=== PATIENT | male | born 1960 | race Caucasian/White ===

== ENCOUNTER 2022-01-10 12:47 | Inpatient (IN) | payer OTHER ==
[~2022-01-10] VITALS: Ht 177.8 cm; Wt 101.2 kg
[2022-01-10 13:20] LABS: BASOPHILS % (AUTO) 0.8 % (0.0-2.0); EOSINOPHILS % (AUTO) 3.3 % (1.0-6.0); HEMATOCRIT 22.3 % (41-53); HEMOGLOBIN 7.3 g/dL (13.5-17.5); LYMPHOCYTES # (AUTO) 1.6 K/uL (1.0-4.8); MEAN CORPUSCULAR HEMOGLOBIN 31.6 pg (26.0-34.0); MEAN CORPUSCULAR HGB CONC 32.7 G/dL (31.0-37.0); MEAN CORPUSCULAR VOLUME 97 fL (80-100); MONOCYTES # (AUTO) 0.3 K/uL (0.1-1.0); MONOCYTES % (AUTO) 3.8 % (2.0-9.0); NEUTROPHILS # (AUTO) 6.1 K/uL (1.8-7.7); NEUTROPHILS % (AUTO) 73.1 % (40.0-70.0); PLATELET COUNT (AUTO) 243 K/uL (150-450); RED BLOOD CELL COUNT(AUTO) 2.31 MIL/uL (4.50-5.90); RED CELL DISTRIBUTION WIDTH 18.8 % (11.5-14.5)
[2022-01-10 13:31] LABS: ABG BASE EXCESS -2.2 mmol/L (-2.0-3.0); ABG CARBOXYHEMOGLOBIN 1.1 % (0.0-1.5); ABG HCO3 22.6 mmol/L (22.0-26.0); ABG METHEMOGLOBIN 0.2 % (0.0-1.5); ABG OXYGEN CONTENT 11.3 mL/dL (15.0-23.0); ABG OXYGEN SATURATION 99.6 % (95.0-98.0); ABG OXYHEMOGLOBIN 98.3 % (94.0-100.0); ABG PCO2 60 mmHg (35-45); ABG PH 7.245 (7.35-7.450); PO2, ARTERIAL BG 248.8 mmHg (79.0-87.0); SOURCE, BLOOD GAS ARTERIAL; TEMPERATURE, FAHRENHEIT, BG 101.9 FAHREN (96.0-98.6)
[2022-01-10 13:32] LABS: ABG A-A DIFF O2 399.6 mmHg (10-20.0); ABG TOTAL HEMOGLOBIN 7.7 G/dL (12.0-18.0); O2 DEVICE,BLOOD GAS NRB (ROOM AIR); SITE, BLOOD GAS RT RADIAL
[2022-01-10 13:33] LABS: CALCIUM, TOTAL 8.8 mg/dL (8.8-10.5); CREATININE 9.08 mg/dL (0.60-1.30); POTASSIUM 5.8 mmol/L (3.5-5.1)
[2022-01-10 13:42] LABS: INR 1.1 (0.9-1.1); PROTHROMBIN TIME 11.3 SEC (9.4-11.6)
[2022-01-10 13:45] LABS: ALBUMIN 3.7 g/dL (3.4-5.0); BILIRUBIN,TOTAL 0.5 mg/dL (0.1-1.0); TOTAL PROTEIN, SERUM 8.9 g/dL (6.4-8.2)
[2022-01-10] MEDS ORDERED: NITROGLYCERIN 2% (1 GM=INCH) PACKET TP ONE (13:45)
[2022-01-10] MEDS ORDERED: ASPIRIN 81 MG CHEWABLE TABLET PO ONE (13:45)
[2022-01-10 13:59] LABS: COVID AG,FIA SOURCE NASAL SWAB
[2022-01-10 20:00] VITALS: BP 136/50
[2022-01-10 21:00] VITALS: BP_SYST 137; BP_SYST 141; BP_DIAS 75; BP_DIAS 76
[2022-01-10] MEDS ORDERED: HEPARIN SODIUM,PORCINE 1,000 UNITS/ML 10 ML VIAL IVP PRN ×2 (21:00)
[2022-01-10 21:29] VITALS: BP 123/86
[2022-01-10 22:01] VITALS: BP 133/63
[2022-01-10 22:31] VITALS: BP 140/58
[2022-01-10] MEDS ORDERED: MAGNESIUM HYDROXIDE SUSPENSION 30 ML UDCUP PO PRN (23:30)
[2022-01-10] MEDS ORDERED: ALBUTEROL SULFATE 2.5 MG/0.5 ML NEB SOLUTION NEB PRN (23:30)
[2022-01-10] MEDS ORDERED: BISACODYL 10 MG RECTAL RECTAL SUPPOSITORY PR PRN (23:30)
[2022-01-10] MEDS ORDERED: MORPHINE SULFATE 2 MG/ML SYRINGE IVP PRN (23:30)
[2022-01-10] MEDS ORDERED: ZOLPIDEM TARTRATE 5 MG TABLET PO PRN (23:30)
[2022-01-10] MEDS ORDERED: ONDANSETRON HCL 4 MG/2 ML VIAL IVP PRN (23:30)
[2022-01-10] MEDS ORDERED: IPRATROPIUM BROMIDE 0.5 MG/2.5 ML NEB SOLUTION NEB PRN (23:30)
[2022-01-11] VITALS (10 sets, daily range): BP systolic 143–189; BP diastolic 58–97
[2022-01-11] MEDS: HEPARIN SODIUM,PORCINE 5,000 UNITS/ML VIAL SQ SCH ×4 (00:38→23:40)
[2022-01-11] MEDS ORDERED: DEXTROSE 50%-WATER 25 GM/50 ML SYRINGE IVP PRN (04:45)
[2022-01-11] MEDS: CHOLECALCIFEROL (VIT D3) 1,000 UNITS [25 MCG] TABLET PO SCH (11:36)
[2022-01-11] MEDS: CINACALCET HCL 30 MG TABLET PO SCH (11:36)
[2022-01-11] MEDS: PANTOPRAZOLE SODIUM 40 MG/VIAL IVP SCH (11:36)
[2022-01-11] MEDS: ASPIRIN 81 MG DR TABLET PO SCH (11:36)
[2022-01-11] MEDS: HydrALAZINE HCL 20 MG/ML VIAL IVP PRN ×3 (11:37→21:21)
[2022-01-11] MEDS ORDERED: IPRATROPIUM BROMIDE 0.5 MG/2.5 ML NEB SOLUTION NEB PRN (12:00)
[2022-01-11] MEDS ORDERED: ALBUTEROL SULFATE 2.5 MG/0.5 ML NEB SOLUTION NEB PRN (12:00)
[2022-01-11] MEDS ORDERED: HEPARIN SODIUM,PORCINE 1,000 UNITS/ML VIAL IVP PRN ×2 (14:15)
[2022-01-11] MEDS: CALCIUM CARBONATE 500 MG TABLET PO SCH ×2 (15:58→21:00)
[2022-01-11] MEDS: HydrALAZINE HCL 50 MG TABLET PO SCH ×2 (15:58→21:00)
[2022-01-11] MEDS: FERROUS SULFATE 325 MG EC TABLET PO SCH (17:19)
[2022-01-11] MEDS ORDERED: HEPARIN SODIUM,PORCINE 1,000 UNITS/ML VIAL IVP ONE ×2 (18:17→18:18)
[2022-01-11] MEDS: NIFEdipine 90 MG ER TABLET PO SCH (21:00)
[2022-01-11] MEDS: LOSARTAN POTASSIUM 50 MG TABLET PO SCH (21:00)
[2022-01-11] MEDS ORDERED: METOPROLOL TARTRATE 50 MG TABLET PO SCH (21:00)
[2022-01-12] MEDS ORDERED: METOPROLOL TARTRATE 5 MG/5 ML VIAL IVP ONE
[2022-01-12 01:13] VITALS: BP 170/83
[2022-01-12] MEDS: HydrALAZINE HCL 20 MG/ML VIAL IVP PRN (03:57)
[2022-01-12] MEDS: NIFEdipine 90 MG ER TABLET PO SCH ×2 (04:11→20:42)
[2022-01-12 04:32] VITALS: BP 200/89
[2022-01-12] MEDS ORDERED: HydrALAZINE HCL 20 MG/ML VIAL IVP SCH (05:00)
[2022-01-12 05:44] VITALS: BP 174/79
[2022-01-12 06:51] LABS: GLUCOMETER DEV NAME(LOC) 5N.3; GLUCOSE,POINT OF CARE 70 MG/DL (70-110)
[2022-01-12 08:29] VITALS: BP 128/56
[2022-01-12] MEDS: HYDROCODONE/ACETAMINOPHEN 5-325 MG TABLET PO PRN ×2 (08:33→17:42)
[2022-01-12] MEDS: FERROUS SULFATE 325 MG EC TABLET PO SCH ×2 (08:33→17:41)
[2022-01-12] MEDS: CINACALCET HCL 30 MG TABLET PO SCH (08:33)
[2022-01-12] MEDS: PANTOPRAZOLE SODIUM 40 MG/VIAL IVP SCH (08:34)
[2022-01-12] MEDS: HEPARIN SODIUM,PORCINE 5,000 UNITS/ML VIAL SQ SCH ×2 (08:34→17:41)
[2022-01-12] MEDS: CHOLECALCIFEROL (VIT D3) 1,000 UNITS [25 MCG] TABLET PO SCH (08:35)
[2022-01-12] MEDS: ASPIRIN 81 MG DR TABLET PO SCH (08:35)
[2022-01-12] MEDS: CALCIUM CARBONATE 500 MG TABLET PO SCH ×3 (08:35→20:42)
[2022-01-12] MEDS: LOSARTAN POTASSIUM 50 MG TABLET PO SCH ×2 (08:38→20:42)
[2022-01-12] MEDS ORDERED: METOPROLOL TARTRATE 5 MG/5 ML VIAL IVP SCH (09:00)
[2022-01-12 11:59] VITALS: BP 136/57
[2022-01-12] MEDS: HydrALAZINE HCL 50 MG TABLET PO SCH (16:00)
[2022-01-12] MEDS: MethylPREDNISolone SOD SUCC 40 MG/ML VIAL IVP SCH (17:41)
[2022-01-12 19:27] VITALS: BP 137/77
[2022-01-12] MEDS: METOPROLOL TARTRATE 50 MG TABLET PO SCH (20:43)
[2022-01-13] VITALS (13 sets, daily range): BP systolic 120–178; BP diastolic 43–95
[2022-01-13] MEDS: MethylPREDNISolone SOD SUCC 40 MG/ML VIAL IVP SCH ×5 (00:05→23:46)
[2022-01-13] MEDS: HEPARIN SODIUM,PORCINE 5,000 UNITS/ML VIAL SQ SCH ×4 (00:05→23:46)
[2022-01-13] MEDS: HydrALAZINE HCL 50 MG TABLET PO SCH ×4 (00:05→23:46)
[2022-01-13] MEDS: HydrALAZINE HCL 20 MG/ML VIAL IVP PRN (03:06)
[2022-01-13] MEDS: HYDROCODONE/ACETAMINOPHEN 5-325 MG TABLET PO PRN ×3 (05:48→20:41)
[2022-01-13] MEDS: METOPROLOL TARTRATE 50 MG TABLET PO SCH ×2 (06:22→21:00)
[2022-01-13 06:58] LABS: CALCIUM, TOTAL 8.2 mg/dL (8.8-10.5); CREATININE 9.43 mg/dL (0.60-1.30); POTASSIUM 5.9 mmol/L (3.5-5.1)
[2022-01-13] MEDS: CALCIUM CARBONATE 500 MG TABLET PO SCH ×3 (08:34→20:41)
[2022-01-13] MEDS: CHOLECALCIFEROL (VIT D3) 1,000 UNITS [25 MCG] TABLET PO SCH (08:34)
[2022-01-13] MEDS: LOSARTAN POTASSIUM 50 MG TABLET PO SCH ×2 (08:34→20:41)
[2022-01-13] MEDS: ASPIRIN 81 MG DR TABLET PO SCH (08:34)
[2022-01-13] MEDS: FERROUS SULFATE 325 MG EC TABLET PO SCH ×2 (08:35→18:00)
[2022-01-13] MEDS: CINACALCET HCL 30 MG TABLET PO SCH (08:35)
[2022-01-13] MEDS: PANTOPRAZOLE SODIUM 40 MG/VIAL IVP SCH (08:38)
[2022-01-13] MEDS: NIFEdipine 90 MG ER TABLET PO SCH ×2 (09:00→21:00)
[2022-01-13] MEDS ORDERED: SODIUM CHLORIDE 0.9% 1,000 ML ONE (09:07)
[2022-01-13] MEDS ORDERED: HEPARIN SODIUM,PORCINE 1,000 UNITS/ML VIAL IVP ONE (12:00)
[2022-01-14 00:16] LABS: GLUCOMETER DEV NAME(LOC) 5N.3; GLUCOSE,POINT OF CARE 208 MG/DL (70-110)
[2022-01-14 04:11] VITALS: BP 145/71
[2022-01-14] MEDS: MethylPREDNISolone SOD SUCC 40 MG/ML VIAL IVP SCH ×4 (06:00→23:49)
[2022-01-14] MEDS: HEPARIN SODIUM,PORCINE 5,000 UNITS/ML VIAL SQ SCH ×3 (08:00→23:48)
[2022-01-14] MEDS: HydrALAZINE HCL 50 MG TABLET PO SCH ×3 (08:00→23:49)
[2022-01-14] MEDS: CINACALCET HCL 30 MG TABLET PO SCH (08:00)
[2022-01-14] MEDS: FERROUS SULFATE 325 MG EC TABLET PO SCH ×2 (08:00→16:51)
[2022-01-14] MEDS: NIFEdipine 90 MG ER TABLET PO SCH ×2 (09:00→21:00)
[2022-01-14] MEDS: ASPIRIN 81 MG DR TABLET PO SCH (09:00)
[2022-01-14] MEDS: PANTOPRAZOLE SODIUM 40 MG/VIAL IVP SCH (09:00)
[2022-01-14] MEDS: CHOLECALCIFEROL (VIT D3) 1,000 UNITS [25 MCG] TABLET PO SCH (09:00)
[2022-01-14] MEDS: LOSARTAN POTASSIUM 50 MG TABLET PO SCH ×2 (09:00→20:59)
[2022-01-14] MEDS: METOPROLOL TARTRATE 50 MG TABLET PO SCH ×2 (09:00→20:58)
[2022-01-14] MEDS: CALCIUM CARBONATE 500 MG TABLET PO SCH ×3 (09:00→20:59)
[2022-01-14] MEDS ORDERED: SEVE800T7 PO (11:41)
[2022-01-14] MEDS ORDERED: ACET-784 PO (11:41)
[2022-01-14] MEDS ORDERED: METO50 PO (11:41)
[2022-01-14] MEDS ORDERED: SIME80TA12 PO (11:41)
[2022-01-14] MEDS ORDERED: LACT10SO62 PO (11:41)
[2022-01-14] MEDS ORDERED: NIFE90TA63 PO (11:41)
[2022-01-14] MEDS ORDERED: FAMO20 PO (11:41)
[2022-01-14] MEDS ORDERED: ASPI-1450 PO (11:41)
[2022-01-14] MEDS ORDERED: OXYM15SP57 NASAL (11:41)
[2022-01-14] MEDS ORDERED: SENN8.8S18 PO (11:41)
[2022-01-14] MEDS ORDERED: HYDR50TA36 PO (11:41)
[2022-01-14] MEDS ORDERED: IPRA3AMP24 IH (11:41)
[2022-01-14] MEDS ORDERED: DOCU250C99 PO (11:41)
[2022-01-14] MEDS ORDERED: CALC-613 PO (11:41)
[2022-01-14] MEDS ORDERED: B CO1CAP6 PO (11:41)
[2022-01-14] MEDS ORDERED: FERR-82 PO (11:41)
[2022-01-14] MEDS ORDERED: BISA-72 PO (11:41)
[2022-01-14] MEDS ORDERED: LACT10SO32 PO (11:41)
[2022-01-14] MEDS ORDERED: CHOL25TA4 PO (11:41)
[2022-01-14 13:14] VITALS: BP 188/90
[2022-01-14 15:44] VITALS: BP 173/80
[2022-01-14 18:31] LABS: GLUCOMETER DEV NAME(LOC) 5S.1B; GLUCOSE,POINT OF CARE 122 MG/DL (70-110)
[2022-01-14 20:32] VITALS: BP 130/48
[2022-01-15] VITALS (15 sets, daily range): BP systolic 113–177; BP diastolic 49–70
[2022-01-15] MEDS: HydrALAZINE HCL 20 MG/ML VIAL IVP PRN (04:19)
[2022-01-15] MEDS: ACETAMINOPHEN 325 MG TABLET PO PRN ×2 (04:51→18:23)
[2022-01-15] MEDS: MethylPREDNISolone SOD SUCC 40 MG/ML VIAL IVP SCH ×3 (05:59→18:23)
[2022-01-15 07:11] LABS: GLUCOMETER DEV NAME(LOC) 5N.3; GLUCOSE,POINT OF CARE 151 MG/DL (70-110)
[2022-01-15] MEDS: HEPARIN SODIUM,PORCINE 5,000 UNITS/ML VIAL SQ SCH ×2 (08:00→16:00)
[2022-01-15 08:21] LABS: BASOPHILS % (AUTO) 0.2 % (0.0-2.0); EOSINOPHILS % (AUTO) 0.2 % (1.0-6.0); LYMPHOCYTES # (AUTO) 0.4 K/uL (1.0-4.8); MEAN CORPUSCULAR HEMOGLOBIN 31.5 pg (26.0-34.0); MEAN CORPUSCULAR VOLUME 96 fL (80-100); MONOCYTES # (AUTO) 0.1 K/uL (0.1-1.0); MONOCYTES % (AUTO) 1.1 % (2.0-9.0); NEUTROPHILS # (AUTO) 4.7 K/uL (1.8-7.7); PLATELET COUNT (AUTO) 167 K/uL (150-450); RED BLOOD CELL COUNT(AUTO) 2.15 MIL/uL (4.50-5.90); RED CELL DISTRIBUTION WIDTH 18.3 % (11.5-14.5)
[2022-01-15] MEDS: CHOLECALCIFEROL (VIT D3) 1,000 UNITS [25 MCG] TABLET PO SCH (08:29)
[2022-01-15] MEDS: CINACALCET HCL 30 MG TABLET PO SCH (08:29)
[2022-01-15] MEDS: PANTOPRAZOLE SODIUM 40 MG/VIAL IVP SCH (08:29)
[2022-01-15] MEDS: FERROUS SULFATE 325 MG EC TABLET PO SCH ×2 (08:29→18:23)
[2022-01-15] MEDS: NIFEdipine 90 MG ER TABLET PO SCH ×2 (08:30→20:57)
[2022-01-15] MEDS: HydrALAZINE HCL 50 MG TABLET PO SCH ×2 (08:30→16:00)
[2022-01-15] MEDS: METOPROLOL TARTRATE 50 MG TABLET PO SCH ×2 (08:31→20:58)
[2022-01-15] MEDS: ASPIRIN 81 MG DR TABLET PO SCH (08:31)
[2022-01-15] MEDS: CALCIUM CARBONATE 500 MG TABLET PO SCH ×3 (08:31→20:58)
[2022-01-15] MEDS: LOSARTAN POTASSIUM 50 MG TABLET PO SCH ×2 (08:32→20:57)
[2022-01-15 08:41] LABS: HEMATOCRIT 20.5 % (41-53); HEMOGLOBIN 6.8 g/dL (13.5-17.5); NEUTROPHILS % (AUTO) 91.5 % (40.0-70.0)
[2022-01-15 08:57] LABS: ALBUMIN 3.2 g/dL (3.4-5.0); BILIRUBIN,TOTAL 0.5 mg/dL (0.1-1.0); CALCIUM, TOTAL 8.1 mg/dL (8.8-10.5); CREATININE 8.93 mg/dL (0.60-1.30); POTASSIUM 5.9 mmol/L (3.5-5.1); TOTAL PROTEIN, SERUM 7.2 g/dL (6.4-8.2)
[2022-01-15 11:06] LABS: BASOPHILS % (AUTO) 0.1 % (0.0-2.0); EOSINOPHILS % (AUTO) 0 % (1.0-6.0); HEMATOCRIT 21.9 % (41-53); LYMPHOCYTES # (AUTO) 0.4 K/uL (1.0-4.8); LYMPHOCYTES % (AUTO) 6.6 % (22.0-44.0); MEAN CORPUSCULAR HEMOGLOBIN 30.9 pg (26.0-34.0); MEAN CORPUSCULAR VOLUME 96 fL (80-100); MONOCYTES % (AUTO) 0.7 % (2.0-9.0); NEUTROPHILS # (AUTO) 4.9 K/uL (1.8-7.7); PLATELET COUNT (AUTO) 183 K/uL (150-450); RED BLOOD CELL COUNT(AUTO) 2.27 MIL/uL (4.50-5.90); RED CELL DISTRIBUTION WIDTH 17.8 % (11.5-14.5)
[2022-01-15 11:07] LABS: NEUTROPHILS % (AUTO) 92.6 % (40.0-70.0)
[2022-01-15 11:17] LABS: CREATININE 9.2 mg/dL (0.60-1.30); POTASSIUM 5.9 mmol/L (3.5-5.1)
[2022-01-15] MEDS: INSULIN LISPRO 100 UNITS/ML SQ PRN ×3 (11:58→20:45)
[2022-01-15] MEDS: HYDROCODONE/ACETAMINOPHEN 5-325 MG TABLET PO PRN (12:24)
[2022-01-15] MEDS ORDERED: SODIUM CHLORIDE 0.9% 1,000 ML ONE ×2 (13:09)
[2022-01-15] MEDS ORDERED: SENN-277 PO (13:22)
[2022-01-15 22:02] LABS: GLUCOMETER DEV NAME(LOC) 5S.1B; GLUCOSE,POINT OF CARE 190 MG/DL (70-110)
[2022-01-16] MEDS: MethylPREDNISolone SOD SUCC 40 MG/ML VIAL IVP SCH ×5 (00:12→23:59)
[2022-01-16] MEDS: HydrALAZINE HCL 50 MG TABLET PO SCH ×5 (00:13→23:59)
[2022-01-16 00:27] VITALS: BP 123/56
[2022-01-16] MEDS: INSULIN LISPRO 100 UNITS/ML SQ PRN ×4 (06:03→21:26)
[2022-01-16 07:45] LABS: EOSINOPHILS % (AUTO) 0 % (1.0-6.0); HEMATOCRIT 23.4 % (41-53); HEMOGLOBIN 7.6 g/dL (13.5-17.5); LYMPHOCYTES # (AUTO) 0.5 K/uL (1.0-4.8); LYMPHOCYTES % (AUTO) 5.7 % (22.0-44.0); MEAN CORPUSCULAR HEMOGLOBIN 31.6 pg (26.0-34.0); MEAN CORPUSCULAR HGB CONC 32.6 G/dL (31.0-37.0); MEAN CORPUSCULAR VOLUME 97 fL (80-100); MONOCYTES # (AUTO) 0.2 K/uL (0.1-1.0); MONOCYTES % (AUTO) 2.6 % (2.0-9.0); NEUTROPHILS # (AUTO) 7.6 K/uL (1.8-7.7); PLATELET COUNT (AUTO) 191 K/uL (150-450); RED BLOOD CELL COUNT(AUTO) 2.41 MIL/uL (4.50-5.90)
[2022-01-16 07:52] LABS: NEUTROPHILS % (AUTO) 91.7 % (40.0-70.0)
[2022-01-16 07:58] LABS: ALBUMIN 3.2 g/dL (3.4-5.0); BILIRUBIN,TOTAL 0.4 mg/dL (0.1-1.0); CREATININE 5.92 mg/dL (0.60-1.30); POTASSIUM 4.4 mmol/L (3.5-5.1); TOTAL PROTEIN, SERUM 7.3 g/dL (6.4-8.2)
[2022-01-16 08:33] VITALS: BP 162/65
[2022-01-16] MEDS: FERROUS SULFATE 325 MG EC TABLET PO SCH ×2 (09:12→17:48)
[2022-01-16] MEDS: CINACALCET HCL 30 MG TABLET PO SCH (09:12)
[2022-01-16] MEDS: NIFEdipine 90 MG ER TABLET PO SCH ×2 (09:12→21:23)
[2022-01-16] MEDS: LOSARTAN POTASSIUM 50 MG TABLET PO SCH ×2 (09:13→21:23)
[2022-01-16] MEDS: HYDROCODONE/ACETAMINOPHEN 5-325 MG TABLET PO PRN (09:13)
[2022-01-16] MEDS: METOPROLOL TARTRATE 25 MG TABLET PO SCH ×2 (09:13→21:23)
[2022-01-16] MEDS: PANTOPRAZOLE SODIUM 40 MG/VIAL IVP SCH (09:13)
[2022-01-16] MEDS: CALCIUM CARBONATE 500 MG TABLET PO SCH ×3 (09:14→21:23)
[2022-01-16] MEDS: ASPIRIN 81 MG DR TABLET PO SCH (09:14)
[2022-01-16] MEDS: CHOLECALCIFEROL (VIT D3) 1,000 UNITS [25 MCG] TABLET PO SCH (09:14)
[2022-01-16] MEDS: HEPARIN SODIUM,PORCINE 5,000 UNITS/ML VIAL SQ SCH ×4 (09:14→23:59)
[2022-01-16 12:08] VITALS: BP 158/71
[2022-01-16 15:56] VITALS: BP 132/46
[2022-01-16 17:47] LABS: GLUCOMETER DEV NAME(LOC) 5N.3; GLUCOSE,POINT OF CARE 298 MG/DL (70-110)
[2022-01-16 17:47] LABS: GLUCOMETER DEV NAME(LOC) 5N.3; GLUCOSE,POINT OF CARE 244 MG/DL (70-110)
[2022-01-16 17:47] LABS: GLUCOMETER DEV NAME(LOC) 5N.3; GLUCOSE,POINT OF CARE 275 MG/DL (70-110)
[2022-01-16 17:47] LABS: GLUCOMETER DEV NAME(LOC) 5N.3; GLUCOSE,POINT OF CARE 223 MG/DL (70-110)
[2022-01-16 17:47] LABS: GLUCOMETER DEV NAME(LOC) 5S.1B; GLUCOSE,POINT OF CARE 300 MG/DL (70-110)
[2022-01-16 19:15] VITALS: BP 150/69
[2022-01-17] VITALS: BP 151/69
[2022-01-17 03:30] VITALS: BP 164/72
[2022-01-17] MEDS: HydrALAZINE HCL 20 MG/ML VIAL IVP PRN (03:38)
[2022-01-17] MEDS: MethylPREDNISolone SOD SUCC 40 MG/ML VIAL IVP SCH ×2 (06:16→11:15)
[2022-01-17] MEDS: INSULIN LISPRO 100 UNITS/ML SQ PRN ×4 (06:17→20:34)
[2022-01-17 06:20] LABS: EOSINOPHILS % (AUTO) 0 % (1.0-6.0); HEMATOCRIT 22.9 % (41-53); HEMOGLOBIN 7.5 g/dL (13.5-17.5); LYMPHOCYTES # (AUTO) 0.6 K/uL (1.0-4.8); LYMPHOCYTES % (AUTO) 5.3 % (22.0-44.0); MEAN CORPUSCULAR HEMOGLOBIN 31.6 pg (26.0-34.0); MEAN CORPUSCULAR HGB CONC 32.7 G/dL (31.0-37.0); MEAN CORPUSCULAR VOLUME 96 fL (80-100); MONOCYTES # (AUTO) 0.2 K/uL (0.1-1.0); MONOCYTES % (AUTO) 2.2 % (2.0-9.0); NEUTROPHILS # (AUTO) 9.6 K/uL (1.8-7.7); PLATELET COUNT (AUTO) 204 K/uL (150-450); RED BLOOD CELL COUNT(AUTO) 2.38 MIL/uL (4.50-5.90); RED CELL DISTRIBUTION WIDTH 18.2 % (11.5-14.5)
[2022-01-17 06:21] LABS: NEUTROPHILS % (AUTO) 92.5 % (40.0-70.0)
[2022-01-17 06:46] LABS: ALBUMIN 2.9 g/dL (3.4-5.0); BILIRUBIN,TOTAL 0.4 mg/dL (0.1-1.0); CALCIUM, TOTAL 7.9 mg/dL (8.8-10.5); CREATININE 7.27 mg/dL (0.60-1.30); TOTAL PROTEIN, SERUM 6.6 g/dL (6.4-8.2)
[2022-01-17 07:32] VITALS: BP 148/68
[2022-01-17] MEDS: HydrALAZINE HCL 50 MG TABLET PO SCH ×2 (07:57→16:58)
[2022-01-17] MEDS: CALCIUM CARBONATE 500 MG TABLET PO SCH ×3 (07:58→20:27)
[2022-01-17] MEDS: PANTOPRAZOLE SODIUM 40 MG/VIAL IVP SCH (07:58)
[2022-01-17] MEDS: ASPIRIN 81 MG DR TABLET PO SCH (07:58)
[2022-01-17] MEDS: FERROUS SULFATE 325 MG EC TABLET PO SCH ×2 (07:58→18:00)
[2022-01-17] MEDS: LOSARTAN POTASSIUM 50 MG TABLET PO SCH ×2 (07:58→20:27)
[2022-01-17] MEDS: HEPARIN SODIUM,PORCINE 5,000 UNITS/ML VIAL SQ SCH ×2 (07:58→16:58)
[2022-01-17] MEDS: METOPROLOL TARTRATE 25 MG TABLET PO SCH ×2 (07:58→21:00)
[2022-01-17] MEDS: CINACALCET HCL 30 MG TABLET PO SCH (07:58)
[2022-01-17] MEDS: CHOLECALCIFEROL (VIT D3) 1,000 UNITS [25 MCG] TABLET PO SCH (07:59)
[2022-01-17] MEDS: NIFEdipine 90 MG ER TABLET PO SCH ×2 (07:59→21:00)
[2022-01-17 11:15] LABS: GLUCOMETER DEV NAME(LOC) 5S.1B; GLUCOSE,POINT OF CARE 305 MG/DL (70-110)
[2022-01-17 11:35] VITALS: BP 156/86
[2022-01-17 12:16] LABS: GLUCOMETER DEV NAME(LOC) 5S.1B; GLUCOSE,POINT OF CARE 334 MG/DL (70-110)
[2022-01-17 12:31] LABS: GLUCOMETER DEV NAME(LOC) 5N.3; GLUCOSE,POINT OF CARE 245 MG/DL (70-110)
[2022-01-17 16:52] VITALS: BP 148/78
[2022-01-17 17:26] LABS: GLUCOMETER DEV NAME(LOC) 5N.3; GLUCOSE,POINT OF CARE 306 MG/DL (70-110)
[2022-01-17 19:11] LABS: GLUCOMETER DEV NAME(LOC) 5N.3; GLUCOSE,POINT OF CARE 324 MG/DL (70-110)
[2022-01-17 20:15] VITALS: BP 112/47
[2022-01-17 20:36] LABS: GLUCOMETER DEV NAME(LOC) 5S.1B; GLUCOSE,POINT OF CARE 299 MG/DL (70-110)
[2022-01-18] VITALS (16 sets, daily range): BP systolic 121–169; BP diastolic 48–84
[2022-01-18] MEDS: HEPARIN SODIUM,PORCINE 5,000 UNITS/ML VIAL SQ SCH ×3 (00:11→15:50)
[2022-01-18] MEDS: HydrALAZINE HCL 50 MG TABLET PO SCH ×3 (00:11→15:50)
[2022-01-18] MEDS: INSULIN LISPRO 100 UNITS/ML SQ PRN ×3 (05:58→17:14)
[2022-01-18 06:27] LABS: BASOPHILS % (AUTO) 0.1 % (0.0-2.0); EOSINOPHILS % (AUTO) 0.4 % (1.0-6.0); HEMATOCRIT 23.3 % (41-53); HEMOGLOBIN 7.6 g/dL (13.5-17.5); LYMPHOCYTES # (AUTO) 1.3 K/uL (1.0-4.8); LYMPHOCYTES % (AUTO) 12.7 % (22.0-44.0); MEAN CORPUSCULAR HEMOGLOBIN 31.2 pg (26.0-34.0); MEAN CORPUSCULAR HGB CONC 32.5 G/dL (31.0-37.0); MEAN CORPUSCULAR VOLUME 96 fL (80-100); MONOCYTES # (AUTO) 0.6 K/uL (0.1-1.0); MONOCYTES % (AUTO) 5.6 % (2.0-9.0); NEUTROPHILS # (AUTO) 8.2 K/uL (1.8-7.7); NEUTROPHILS % (AUTO) 81.2 % (40.0-70.0); PLATELET COUNT (AUTO) 227 K/uL (150-450); RED BLOOD CELL COUNT(AUTO) 2.43 MIL/uL (4.50-5.90); RED CELL DISTRIBUTION WIDTH 18.3 % (11.5-14.5)
[2022-01-18 06:52] LABS: ALBUMIN 2.8 g/dL (3.4-5.0); BILIRUBIN,TOTAL 0.4 mg/dL (0.1-1.0); CALCIUM, TOTAL 7.6 mg/dL (8.8-10.5); CREATININE 8.09 mg/dL (0.60-1.30); POTASSIUM 4.7 mmol/L (3.5-5.1); TOTAL PROTEIN, SERUM 6.2 g/dL (6.4-8.2)
[2022-01-18] MEDS: CALCIUM CARBONATE 500 MG TABLET PO SCH ×3 (08:23→21:00)
[2022-01-18] MEDS: ASPIRIN 81 MG DR TABLET PO SCH (08:23)
[2022-01-18] MEDS: PANTOPRAZOLE SODIUM 40 MG/VIAL IVP SCH (08:23)
[2022-01-18] MEDS: CINACALCET HCL 30 MG TABLET PO SCH (08:23)
[2022-01-18] MEDS: CHOLECALCIFEROL (VIT D3) 1,000 UNITS [25 MCG] TABLET PO SCH (08:23)
[2022-01-18] MEDS: NIFEdipine 90 MG ER TABLET PO SCH ×2 (08:24→19:56)
[2022-01-18] MEDS: METOPROLOL TARTRATE 25 MG TABLET PO SCH ×2 (08:24→19:56)
[2022-01-18] MEDS: LOSARTAN POTASSIUM 50 MG TABLET PO SCH ×2 (08:24→19:56)
[2022-01-18] MEDS: FERROUS SULFATE 325 MG EC TABLET PO SCH ×2 (08:24→17:14)
[2022-01-18] MEDS ORDERED: MethylPREDNISolone SOD SUCC 40 MG/ML VIAL IVP SCH (09:00)
[2022-01-18] MEDS ORDERED: HEPARIN SODIUM,PORCINE 1,000 UNITS/ML VIAL IVP ONE (12:00)
[2022-01-18] MEDS ORDERED: CINA30 PO (15:28)
[2022-01-18] MEDS ORDERED: HYDR50TA36 PO (15:29)
[2022-01-18] MEDS ORDERED: LOSA-382 PO (15:30)
[2022-01-18] MEDS ORDERED: METO25 PO (15:30)
[2022-01-18] MEDS ORDERED: PRED-554 PO (15:31)
[2022-01-18] MEDS ORDERED: PRED-549 PO (15:32)
[2022-01-18] MEDS ORDERED: PRED-729 PO (15:32)
[2022-01-18 17:22] LABS: GLUCOMETER DEV NAME(LOC) 5N.3; GLUCOSE,POINT OF CARE 241 MG/DL (70-110)
[2022-01-18 17:22] LABS: GLUCOMETER DEV NAME(LOC) 5N.3; GLUCOSE,POINT OF CARE 262 MG/DL (70-110)
[2022-01-18 18:11] LABS: GLUCOMETER DEV NAME(LOC) 5S.1B; GLUCOSE,POINT OF CARE 217 MG/DL (70-110)
[2022-01-18] MEDS ORDERED: HEPARIN SODIUM,PORCINE 1,000 UNITS/ML VIAL IVCATH ONE ×2 (18:45)
== END 2022-01-18 20:50 | DRG 194 ==
LOC: EMS 12:47 → ICU 16:48 → 5N 01-11 02:45
PROVIDERS: ADMIT Hospitalist; ATTEND Hospitalist
PROC: 5A09357 Assistance with Respiratory Ventilation, Less than 24 Consecutive Hours, Continuous Positive Airway Pressure (ICD-10-PCS; principal; 2022-01-10)
PROC: 5A1D70Z Performance of Urinary Filtration, Intermittent, Less than 6 Hours Per Day (ICD-10-PCS; 2022-01-13)
PROC: 5A1D70Z Performance of Urinary Filtration, Intermittent, Less than 6 Hours Per Day (ICD-10-PCS; 2022-01-18)
DX: I13.2 Hypertensive heart and chronic kidney disease with heart failure and with stage 5 chronic kidney disease, or end stage renal disease (principal); J96.02 Acute respiratory failure with hypercapnia; E46 Unspecified protein-calorie malnutrition; E83.51 Hypocalcemia; E83.39 Other disorders of phosphorus metabolism; D63.1 Anemia in chronic kidney disease; E87.1 Hypo-osmolality and hyponatremia; N18.6 End stage renal disease; E11.22 Type 2 diabetes mellitus with diabetic chronic kidney disease; J43.9 Emphysema, unspecified; E88.09 Other disorders of plasma-protein metabolism, not elsewhere classified; M79.604 Pain in right leg; R10.31 Right lower quadrant pain; Z20.822 Contact with and (suspected) exposure to COVID-19; I50.33 Acute on chronic diastolic (congestive) heart failure; E78.5 Hyperlipidemia, unspecified; E66.3 Overweight; G89.4 Chronic pain syndrome; E87.5 Hyperkalemia; I20.9 Angina pectoris, unspecified; N25.81 Secondary hyperparathyroidism of renal origin; R62.7 Adult failure to thrive; Z91.15 Patient's noncompliance with renal dialysis; Z91.19 Patient's noncompliance with other medical treatment and regimen; Z99.2 Dependence on renal dialysis; Z78.9 Other specified health status; Z79.82 Long term (current) use of aspirin; Z79.899 Other long term (current) drug therapy; Z68.32 Body mass index [BMI] 32.0-32.9, adult; Z88.0 Allergy status to penicillin
CPT/HCPCS: 36600; 71045; 76700; 80048; 80053; 82550; 82805; 82962; 83880; 84132; 84484; 84520; 85025; 85610; 85730; 86850; 86900; 86901; 86923; 87340; 90935; 93005; 93306; 93925; 94660; 97110; 97116; 97162; 97530; 97535; 99291; C9113; G0378; J0360; J1644; J2270; J2920; J3490; J7030; 36415-L1; 36415-TC; U0003